=== PATIENT | female | born 1950 | race Caucasian/White ===

== ENCOUNTER 2018-02-13 04:56 | Day surgery (SDC) | payer OTHER, MEDICARE ==
[2018-01-30 08:39] VITALS: BMI 39.0
--- NOTE | 2018-01-30 09:21 | PAT Medication Instructions ---
Service Date January 30, 2018. Current Home Medication List Docusate Sodium (Stool Softener), 1 CAP PO BID Levothyroxine Sodium (Levothyroxine Sodium), 100 MCG PO QAM Polyethylene Glycol 3350 (Bulk (Polyethylene Glycol 3350), 17 GM PO HS Simvastatin (Zocor), 40 MG PO QPM Trazodone Hcl (Trazodone), 50 MG PO UD PRN for prn Triamterene/Hctz (Maxzide 75MG/50MG), 1 TAB PO QAM [Venlafaxine Hcl], 75 MG PO QAM [daily fiber ], Unknown Dose PO BID Medication Instructions For Your Scheduled Surgery - Hold the following medications the morning of surgery: Docusate Sodium (Stool Softener), 1 CAP PO BID Triamterene/Hctz (Maxzide 75MG/50MG), 1 TAB PO QAM [daily fiber ], Unknown Dose PO BID - Take the following medications the morning of surgery with a sip of water: Levothyroxine Sodium (Levothyroxine Sodium), 100 MCG PO QAM [Venlafaxine Hcl], 75 MG PO QAM - Take the following medications as scheduled the night before surgery: Docusate Sodium (Stool Softener), 1 CAP PO BID Polyethylene Glycol 3350 (Bulk (Polyethylene Glycol 3350), 17 GM PO HS Simvastatin (Zocor), 40 MG PO QPM Trazodone Hcl (Trazodone), 50 MG PO UD PRN for prn (if needed) [daily fiber ], Unknown Dose PO BID If you have any questions please call us at [phone] or [phone] or [phone]
--- NOTE | 2018-01-30 09:55 | DIAGNOSTIC IMAGING REPORT ---
CHEST 2 VIEWS ROUTINE CLINICAL HISTORY: PAT preoperative evaluation COMPARISON STUDY: 07/29/2015 FINDINGS: The bones soft tissues and hemidiaphragms are normal. The cardiomediastinal silhouette is normal. The lungs are clear. The pulmonary vasculature is normal. IMPRESSION: Negative chest. The above report was generated using voice recognition software. It may contain grammatical, syntax or spelling errors. Electronically signed by: Crow Molina M.D. 01/30/2018 9:54 AM Dictated Date/Time: 01/30/2018 9:54 AM
[2018-01-30 10:49] LABS: BASO % 0.8 %; BASO ABS # 0.04 K/uL (0-0.2); EOS % 6.8 %; EOS ABS # 0.36 K/uL (0-0.5); HEMATOCRIT 42.6 % (37-47); HEMOGLOBIN 13.7 g/dL (12.0-16.0); IG# 0.01 K/uL (0.00-0.02); LYMPH % 22.5 %; LYMPH ABS # 1.19 K/uL (1.2-3.4); MEAN CELL VOLUME 95.9 fL (80-100); MEAN CORPUSCULAR HEMOGLOBIN 30.9 pg (25-34); MEAN CORPUSCULAR HGB CONC 32.2 g/dl (32-36); MEAN PLATELET VOLUME 9.5 fL (7.4-10.4); MONO % 9.6 %; MONO ABS # 0.51 K/uL (0.11-0.59); NEUT % 60.1 %; NEUT ABS # 3.18 K/uL (1.4-6.5); PLATELET COUNT 199 K/uL (130-400); RED CELL DISTRIBUTION WIDTH CV 13.9 % (11.5-14.5); WHITE BLOOD COUNT 5.29 K/uL (4.8-10.8)
[2018-02-13] VITALS (9 sets, daily range): BP systolic 109–155; BP diastolic 70–92; PULSE 71–106; TEMP 36.5–36.8; O2SAT 92–100; Ht 154.9 cm; Wt 95.9 kg
[~2018-02-13] VITALS: Ht 154.9 cm; Wt 95.9 kg
[~2018-02-13 04:56] MED LIST: DOCU100C PO; LEVO100T7 PO; POLY1POW2 PO; SIMV40TA2 PO; TRAZ50TA35 PO; TRIA75TA53 PO; Venlafaxine Hcl PO; daily fiber PO
[2018-02-13] MEDS ORDERED: NAPR1TAB9 PO (05:40)
[2018-02-13] MEDS ORDERED: ACET-1693 PO (05:40)
[2018-02-13] MEDS ORDERED: SCOPOLAMINE 1.5 MG TDSY TD ONE (05:54)
[2018-02-13] MEDS ORDERED: HEPARIN SOD 5000 UNIT/0.5 ML CARP ONE (06:13)
[2018-02-13] MEDS ORDERED: LACTATED RINGER'S 1000ML 1,000 ML IV SCH (06:15)
--- NOTE | 2018-02-13 06:19 | History & Physical Bridge Note ---
H&P Re-Evaluation Bridge Note: I have examined the patient, reviewed the History & Physical and in the interval since the performance of the History & Physical I have noted the following changes of clinical significance: No changes noted did not take all bowel prep antibiotics last night nauseated, pt marked SO will be here later, will give sub cut heparin preop history of DVT in past
[2018-02-13] MEDS ORDERED: HEPARIN SOD 5000 UNIT/0.5 ML CARP SQ ONE (06:30)
[2018-02-13] MEDS ORDERED: CEFAZOLIN SOD 1 GM VIAL ONE (06:36)
[2018-02-13] MEDS ORDERED: MIDAZOLAM HCL 1 MG/ML 2ML VIAL ONE (06:44)
[2018-02-13] MEDS ORDERED: FENTANYL CITRATE INJ 50 MCG/1 ML 2 ML VIAL ONE ×3 (06:44→07:59)
[2018-02-13] MEDS ORDERED: LIDOCAINE HCL 1% 20 ML VIAL ONE (06:52)
[2018-02-13] MEDS ORDERED: BACITRACIN 50000 UNIT VIAL ONE (06:52)
[2018-02-13] MEDS ORDERED: BUPIVACAINE 0.5 % 5 MG/1 ML PF 10ML VIAL ONE (06:53)
[2018-02-13] MEDS ORDERED: PHENYLEPHRINE 100MCG/ML 5ML SYR IV PRN (07:15)
[2018-02-13] MEDS ORDERED: HYDROmorphone INJ 0.5 MG/0.5 ML SYR IV PRN (07:15)
[2018-02-13] MEDS ORDERED: EpHEDrine SULFATE INJ 50 MG/ML AMP IV PRN (07:15)
[2018-02-13] MEDS ORDERED: ONDANSETRON INJ 2 MG/ML 2 ML VIAL IV PRN ×2 (07:15→09:30)
[2018-02-13] MEDS ORDERED: PROMETHAZINE HCL INJ 12.5 MG in SODIUM CHLORIDE 0.9% 50ML 50 ML IV PRN (07:15)
[2018-02-13] MEDS ORDERED: LABETALOL HCL IV 5 MG/ML 20ML IV PRN (07:15)
[2018-02-13] MEDS ORDERED: ATROPINE SULFATE 0.1 MG/ML 5ML SYR IV PRN (07:15)
[2018-02-13] MEDS ORDERED: NEOSTIGMINE METHYLSULFATE 5 MG/5 ML SYR ONE (07:32)
[2018-02-13] MEDS ORDERED: PROPOFOL IV EMULSION 10 MG/ML 20 ML VIAL ONE (07:32)
[2018-02-13] MEDS ORDERED: LARYING-O-JET KIT (LTA) ONE (07:32)
[2018-02-13] MEDS ORDERED: DEXAMETHASONE SOD INJ 4 MG/ML VIAL ONE (07:32)
[2018-02-13] MEDS ORDERED: METOCLOPRAMIDE HCL INJ 5 MG/ML 2 ML VIAL ONE (07:32)
[2018-02-13] MEDS ORDERED: DiphenhydrAMINE HCL 50 MG/ML VIAL ONE (07:32)
[2018-02-13] MEDS ORDERED: ONDANSETRON INJ 2 MG/ML 2 ML VIAL ONE (07:32)
[2018-02-13] MEDS ORDERED: GLYCOPYRROLATE INJ 0.2 MG/ML VIAL ONE (07:32)
[2018-02-13] MEDS ORDERED: LIDOCAINE HCL 2% 2 ML VIAL (20MG/ML) ONE (07:32)
[2018-02-13] MEDS ORDERED: PHENYLEPHRINE 100MCG/ML 5ML SYR ONE (07:49)
--- NOTE | 2018-02-13 09:04 | [facility] Post Operative Brief Note ---
Immediate Operative Summary Operative Date February 13, 2018. Pre-Operative Diagnosis Incisional Hernia, Post-Operative Diagnosis defect kayley 8 cm dx with dense abd adhesion Procedure(s) Performed Open Incisional Hernia Repair, lyses of adhesions, with use of Surgimesh(15cm) Surgeon Dr. Petros Davila Water Conservationist Surgeon(s) Lb Hector PA-C Estimated Blood Loss 50cc Findings See Below as post op dx Specimens Permanent A. Hernia Sac
[2018-02-13] MEDS ORDERED: MoRPHine SULFATE 4 MG/ML 1 ML CARP\\VIAL IV PRN (09:30)
[2018-02-13] MEDS ORDERED: VENL75CA PO (09:39)
[2018-02-13] MEDS: FENTANYL CITRATE INJ 50 MCG/1 ML 2 ML VIAL IV PRN ×4 (09:45→10:00)
[2018-02-13] MEDS ORDERED: IV FLUIDS COMPLETED PRN (10:00)
--- NOTE | 2018-02-13 11:06 | Anesthesiology Progress Note ---
Anesthesia Post Op Note Date & Time February 13, 2018 at 11:05 Vital Signs Pain Intensity: 3 Vital Signs Past 12 Hours Date Time Temp Pulse Resp B/P (MAP) Pulse Ox O2 Delivery O2 Flow Rate FiO2 02/13/18 10:30 36.2 82 15 156/9 98 Nasal Cannula 2 02/13/18 10:20 85 15 162/87 98 Nasal Cannula 2 02/13/18 10:10 84 13 154/88 99 Nasal Cannula 2 02/13/18 10:00 84 18 157/88 99 Nasal Cannula 2 02/13/18 09:50 91 15 174/90 98 Nasal Cannula 2 02/13/18 09:40 97 14 185/102 100 Oxymask 10 02/13/18 09:30 98 16 171/78 100 Oxymask 10 02/13/18 09:24 36.2 102 16 180/84 100 Oxymask 10 02/13/18 05:42 36.7 83 18 155/77 (103) 97 Room Air Notes Mental Status: alert / awake / arousable, participated in evaluation Pt Amnestic to Procedure: Yes Nausea / Vomiting: adequately controlled Pain: adequately controlled Airway Patency, RR, SpO2: stable & adequate BP & HR: stable & adequate Hydration State: stable & adequate Anesthetic Complications: no major complications apparent
--- NOTE | 2018-02-13 11:26 | OPERATIVE REPORT ---
DATE OF OPERATION: 02/13/2018 SURGEON: Petros Davila MD BACK GRAY CLOTH WASHER: Lb Hector PA-C. PREOPERATIVE DIAGNOSIS: Incisional hernia. POSTOPERATIVE DIAGNOSIS: Same with dense abdominal adhesions. PROCEDURE: Repair of incisional hernia with 15 cm Surgimesh, lysis of abdominal adhesions. SUMMARY: The patient was brought into the operating room theater. The abdomen was prepped with Betadine scrubbing solution and properly draped. The patient had at the right of the umbilicus, a bulge that was consistent with a recurrent hernia from previous multiple abdominal surgeries and an open anterior repair of a hernia done years ago. At this point, we used the same incision which was in the midline incision to the left of the umbilicus, we made about 2 inches above and 2 inches below the umbilicus, deepened through subcutaneous tissue. Once we entered the subcutaneous tissue as could be imagined we were met with significant amount of scar tissue. We then enlarged the incision cephalad and caudad to get more exposure. The patient had a pretty prominent abdominal wall and a subcutaneous tissue to the point that once we had all dissected out, we put an O'Otilio-O'Gutierrez retractor to hold the subQ. Having said that, we started dissecting out to their place where we could find the hernia. We used blunt dissection, probably sharp dissection at times. We felt the abdominal wall mostly inferiorly and used that as a plane of dissection to go on both sides and go up towards the midline centrally. What we identified is that the patient had a significant amount of protruding small bowel and coming through a defect, and once we freed it up from the subcutaneous tissue, we could outline, it entered the hernial sac and actually freed up the small bowel completely, so, we were able to assess more to the defect being inside the abdomen. We circumferentially marked the defect in which the mesh was prominent and it was about an 8 cm diameter defect. We excised the excess hernial sac. Once we had outlined the abdominal wall and a defect to be about 8 cm as stated diameter, I elected to bring a piece of Surgimesh, we measured at 15 cm and we were able to place it with the shiny side into the abdomen, sutured it in multiple interrupted 1 cm or so concentric sutures of #1 Ethibond. We placed another similar concentric row completely tacked down into the edge of the mesh or the edge of the defect to the mesh. Once this was accomplished, we then were able to place subcutaneous tissue of 2-0 and 3-0 Dexon. We placed a Luis drain to the right of the incision and placed between the anterior abdominal wall. This is a 19 Luis, attached to skin edge with 2-0 silk. Subcutaneous tissue was brought together and was closed with landry. Estimated blood loss was approximately 50 mL. 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 The procedure was tolerated well. The patient was taken to recovery room in good condition. I attest to the content of the Intraoperative Record and any orders documented therein. Any exceptions are noted below. MELVIN
[2018-02-13 11:48] LABS: PTT PATIENT 26.4 SECONDS (21.0-31.0)
[2018-02-13] MEDS: LACTATED RINGER'S 1000ML 1,000 ML IV SCH ×2 (12:07→22:12)
[2018-02-13] MEDS: HEPARIN SOD 5000 UNIT/0.5 ML CARP SQ SCH ×2 (13:51→22:10)
[2018-02-13] MEDS: OXYCODONE/ACETAMINOPHEN 5-325 TAB PO PRN ×2 (15:06→19:02)
[2018-02-13] MEDS ORDERED: NURSING VERBAL MED ORDER ONE (23:15)
[2018-02-14] MEDS: CHECK SCOPOLAMINE PATCH PLACEMENT SCH ×2 (01:40→07:34)
[2018-02-14 03:33] VITALS: BP 113/72; PULSE 79; TEMP 36.8; O2SAT 96
[2018-02-14] MEDS ORDERED: LEVOTHYROXINE 100 MCG TAB PO SCH (06:00)
[2018-02-14] MEDS: HEPARIN SOD 5000 UNIT/0.5 ML CARP SQ SCH (06:04)
[2018-02-14] MEDS ORDERED: OXYC-57 PO ×3 (07:04→07:33)
[2018-02-14 07:08] VITALS: BP 120/77; PULSE 79; TEMP 36.9; O2SAT 95
--- NOTE | 2018-02-14 07:08 | Discharge Instructions ---
Discharge Instructions Date of Service February 14, 2018. Visit Reason for Visit: Incisional Hernia Discharge Discharge Diagnosis / Problem: incisional hernia Discharge Goals Goal(s): Decrease discomfort, Improve function Activity Recommendations Activity Limitations: as noted below (no lifting greater than 10 lbs for one week) May Resume Sexual Activity: after one week Shower/Bathe: no limitations Driving or Machine Use: no driving for one week and do not take rx med for pain if so Anesthesia . Post Anesthesia Instructions: If you have had General Anesthesia or IV Sedation: * Do not drive today. * Resume driving when surgeon permits. * Do not make important decisions or sign legal documents today. * Call surgeon for: 1. Temperature elevations greater than 101 degrees F. 2. Uncontrollable pain. 3. Excessive bleeding. 4. Persistent nausea and vomiting. 5. Medication intolerance (nausea, vomiting or rash). * For nausea and vomiting use only clear liquids such as: tea, soda, bouillon until nausea subsides, then gradually increase diet as tolerated. * If you have any concerns or questions, call your surgeon's office. If physician is unavailable and it is an emergency, call 911 or go to the nearest emergency room. . Instructions / Follow-Up Instructions / Follow-Up call [phone] for any problems return office 1 week Diet Recommendations Recommended Home Diet: resume previous diet Procedures Procedures Performed: Open Incisional Hernia Repair, lyses of adhesions, with use of Surgimesh(15cm) Pending Studies Studies pending at discharge: no Medical Emergencies . Who to Call and When: Medical Emergencies: If at any time you feel your situation is an emergency, please call 911 immediately. . Non-Emergent Contact Non-Emergency issues call your: Primary Care Provider . . "Provider Documentation" section prepared by Petros Davila. .
[2018-02-14] MEDS: OXYCODONE/ACETAMINOPHEN 5-325 TAB PO PRN (07:35)
--- NOTE | 2018-02-14 08:13 | SURGERY PROGRESS NOTE ---
DATE: 02/14/2018 Keri is first postoperative day repair of recurrent incisional hernia open with a Surgimesh placement. She is doing remarkably well. She is walking around. She states she has passed some flatus, having minimal discomfort. The incision looks good. I took the Luis drain out which was minimal. Drainage is serous, slightly sanguineous. Intraoperative findings were discussed with the patient. Her last vitals showed a temperature of 36.9, pulse 79, respirations 18, blood pressure 120/77, O2 sats 95 on room air. She is voiding without problems. At this point, we will discharge the patient. Instructions were given to her regarding wound care, diet, activity, meds and follow up in our office and a prescription for analgesia was also given to the patient. wrong pt name should be Keri De La Fuente room number [id number] MTDD
--- NOTE | 2018-02-14 08:35 | Anesthesiology Progress Note ---
Anesthesia Post Op Note Date & Time February 14, 2018 at 08:35 Vital Signs Pain Intensity: 3.0 Vital Signs Past 12 Hours Date Time Temp Pulse Resp B/P (MAP) Pulse Ox O2 Delivery O2 Flow Rate FiO2 02/14/18 07:57 Room Air 02/14/18 07:08 36.9 79 18 120/77 (91) 95 Room Air 02/14/18 03:33 36.8 79 16 113/72 (86) 96 Room Air 02/13/18 23:40 Room Air 02/13/18 22:44 36.6 71 16 109/70 (83) 95 Room Air Notes Mental Status: alert / awake / arousable, participated in evaluation Pt Amnestic to Procedure: Yes Nausea / Vomiting: adequately controlled Pain: adequately controlled Airway Patency, RR, SpO2: stable & adequate BP & HR: stable & adequate Hydration State: stable & adequate Anesthetic Complications: no major complications apparent
--- NOTE | 2018-02-14 08:51 | DISCHARGE SUMMARY ---
PREOPERATIVE DIAGNOSIS: Incisional hernia. POSTOPERATIVE DIAGNOSIS: Recurrent incisional hernia. PROCEDURE: Repair of recurrent incisional hernia open with 15 cm Surgimesh. SUMMARY: The patient was brought in, seemed to have a symptomatic hernia to the right of the midline incision, and was found to have a recurrent incisional hernia, which was repaired without any difficulty. She is doing well this morning. She is ambulating with minimal discomfort. She is tolerating a diet and is anxious to go home. The Luis drain was removed and instructions were given to return to our office in 1 week and call us if there are any new problems develop. Should not lift anything heavier than 10 pounds and she may shower tomorrow and she should not drive for a week.
[2018-02-14] MEDS ORDERED: TRIAMTERENE/HCTZ 37.5/25MG CAP PO SCH (09:00)
[2018-02-14] MEDS ORDERED: VENLAFAXINE HCL XR 75 MG CAPXR PO SCH (09:00)
[2018-02-14 09:26] VITALS: BP 120/77; PULSE 79; TEMP 36.9; O2SAT 95
--- NOTE | 2018-02-14 10:35 | DISCHARGE SUMMARY ---
PRIMARY DISCHARGE DIAGNOSIS: Recurrent incisional hernia. SECONDARY DISCHARGE DIAGNOSES: 1. History of lung cancer. 2. History of ovarian cancer. 3. Hypertension. 4. Depression. 5. Hypothyroidism. 6. History of pulmonary embolism. 7. Peripheral neuropathy. 8. Obstructive sleep apnea. PROCEDURES PERFORMED: Repair of incisional hernia with lysis of abdominal adhesions. HOSPITAL COURSE: Patient is a 67-year-old female with recurrent incisional hernia taken to the operating room for open repair using a 15 cm Surgimesh. The procedure was well tolerated. Luis drain was placed in the wound bed. She was admitted to the surgical floor for overnight observation. On postoperative day 1, she was doing well, was tolerating diet and oral analgesics. RAYMON drainage was 75 mL overnight. The drain was removed. Her incision was clean. She was stable for discharge. DISCHARGE INSTRUCTIONS: Discharge home. Follow up with Dr. Davila in 1 week. DISCHARGE MEDICATIONS: Percocet 1 tablet every 4 hours as needed for pain. Can resume home medications, Tylenol as needed, docusate sodium 1 tablet b.i.d., levothyroxine 100 mcg daily, Aleve 220 mg as needed, polyethylene glycol powder at bedtime, Zocor 40 mg daily, trazodone 50 mg as needed, Maxzide 75/50 one tablet daily, Effexor 75 mg daily.
== END 2018-02-14 10:15 | disposition home or self-care (01) ==
LOC: C.ACU 04:56 → C.MSW 09:34 → ENRESERV 10:09
PROVIDERS: ADMIT Surgery; ATTEND Surgery
DX: K43.2 Incisional hernia without obstruction or gangrene (principal); K66.0 Peritoneal adhesions (postprocedural) (postinfection); G47.33 Obstructive sleep apnea (adult) (pediatric); E03.9 Hypothyroidism, unspecified; G62.9 Polyneuropathy, unspecified; E78.5 Hyperlipidemia, unspecified; K44.0 Diaphragmatic hernia with obstruction, without gangrene; I10 Essential (primary) hypertension; Z86.711 Personal history of pulmonary embolism; Z85.118 Personal history of other malignant neoplasm of bronchus and lung; Z85.43 Personal history of malignant neoplasm of ovary; Z90.13 Acquired absence of bilateral breasts and nipples; Z90.710 Acquired absence of both cervix and uterus; Z90.722 Acquired absence of ovaries, bilateral; Z90.2 Acquired absence of lung [part of]; Z87.891 Personal history of nicotine dependence; Z82.49 Family history of ischemic heart disease and other diseases of the circulatory system; Z80.1 Family history of malignant neoplasm of trachea, bronchus and lung